=== PATIENT | female | born 1940 | race Caucasian/White ===

== ENCOUNTER 2022-01-19 02:33 | Outpatient (CLI) | payer MEDICARE, SELFPAY ==
[2022-01-19 11:00] LABS: HCT 43.1 % (36.0-46.0); HGB 14.5 g/dL (11.2-15.7); MCHC 33.6 % (32.0-36.0); MCV 92 fL (80-95); MPV 9.4 fL (8.0-11.0); Platelet Count 268 10^3/uL (130-400); RBC 4.67 10^6/uL (3.93-5.22); RDW 13.2 % (11.7-14.6); RDW-SD 44.5 fL; WBC 7.87 10^3/uL (4.4-10.8)
[2022-01-19 11:40] LABS: TSH 4.98 uIU/mL (0.36-3.74)
[2022-01-19 17:45] LABS: T3, Total 97 ng/dL (97-169)
== END 2022-01-19 02:34 | disposition home or self-care (01) ==
LOC: LBO 02:34
PROVIDERS: PCP Nurse Practitioner Family; Visit Provider Internal Medicine Endocrinology, Diabetes & Metabolism
DX: E05.00 Thyrotoxicosis with diffuse goiter without thyrotoxic crisis or storm (principal); Z51.81 Encounter for therapeutic drug level monitoring
CPT/HCPCS: 36415; 85027; 84439; 84443; 84480

== ENCOUNTER → 2022-03-26 00:24 | Outpatient (CLI) | payer MEDICARE, OTHER, SELFPAY ==
--- NOTE | 2022-03-26 | DI.DEXA_ITS ---
Exam(s) XR DEXA BONE DENSITY W/WO CORIE EXAM: XR DEXA BONE DENSITY W/WO CORIE CLINICAL HISTORY: POST MENOPAUSAL N95.9 HX GRAVES DISEASE TECHNIQUE: HoloThrill On C densitometer analysis of left hip, lumbar spine and left forearm. COMPARISON: No exams were available for comparison FINDINGS: Lateral view of the thoracic and lumbar spine shows some accentuation of the thoracic kyphosis but no definite compression fractures. Bone mineral density measurements of the lumbar spine correspond to a total T-score of -2.1, in the osteopenic range. Bone mineral density measurements of the left hip correspond to a total T-score of -2.8. The femora l neck T-score is -3.3, in the osteoporotic range.. The left forearm bone mineral density measurements correspond to a T-score of the distal 3rd of -3.8 , in the osteoporotic range.. 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
== END ==
PROVIDERS: PCP Nurse Practitioner Family; Visit Provider Internal Medicine Endocrinology, Diabetes & Metabolism
DX: N95.9 Unspecified menopausal and perimenopausal disorder (principal); Z13.820 Encounter for screening for osteoporosis; M81.0 Age-related osteoporosis without current pathological fracture; M85.89 Other specified disorders of bone density and structure, multiple sites
CPT/HCPCS: 77080

== ENCOUNTER 2022-08-26 04:10 | Outpatient (CLI) | payer MEDICARE, OTHER, SELFPAY ==
[2022-08-26 14:28] LABS: FREE T4 0.94 ng/dL (0.76-1.46); TSH 7.05 uIU/mL (0.36-3.74)
[2022-08-26 22:49] LABS: T3, Total 101 ng/dL (97-169)
== END 2022-08-26 04:11 | disposition home or self-care (01) ==
LOC: LBO 04:10
PROVIDERS: PCP Nurse Practitioner Family; Visit Provider Internal Medicine Endocrinology, Diabetes & Metabolism
DX: E05.00 Thyrotoxicosis with diffuse goiter without thyrotoxic crisis or storm (principal)
CPT/HCPCS: 36415; 84439; 84443; 84480

== ENCOUNTER 2022-12-29 05:48 | Outpatient (CLI) | payer MEDICARE, SELFPAY ==
[2022-12-29 15:50] LABS: FREE T4 1.24 ng/dL (0.76-1.46); TSH 3.15 uIU/mL (0.36-3.74)
[2022-12-29 22:19] LABS: T3, Total 91 ng/dL (97-169)
== END 2022-12-29 05:49 | disposition home or self-care (01) ==
LOC: LBO 05:48
PROVIDERS: PCP Nurse Practitioner Family; Visit Provider Internal Medicine Endocrinology, Diabetes & Metabolism
DX: E05.00 Thyrotoxicosis with diffuse goiter without thyrotoxic crisis or storm (principal)
CPT/HCPCS: 36415; 84439; 84443; 84480

== ENCOUNTER 2023-04-19 02:49 | Outpatient (CLI) | payer MEDICARE, SELFPAY ==
[2023-04-19 12:35] LABS: HCT 43.2 % (36.0-46.0); MCH 32.1 pg (27.0-33.0); MCHC 34.7 % (32.0-36.0); MCV 93 fL (80-95); MPV 9.4 fL (8.0-11.0); Platelet Count 273 10^3/uL (130-400); RBC 4.67 10^6/uL (3.93-5.22); RDW 12.6 % (11.7-14.6); WBC 8.64 10^3/uL (4.4-10.8)
[2023-04-19 13:16] LABS: ALT 16 U/L (14-59); AST 19 U/L (15-37); Albumin 3.9 g/dL (3.4-5.0); Alkaline Phosphatase 87 U/L (46-116); BUN 13 mg/dL (7-18); Bilirubin, Total 0.7 mg/dL (0.2-1.0); CREATININE 0.9 mg/dL (0.55-1.02); Calcium 10.1 mg/dL (8.5-10.1); Chloride 93 mmol/L (98-107); Estimated GFR 63.43 (mL/min/1.73m2); FREE T4 1.11 ng/dL (0.76-1.46); Glucose 95 mg/dL (74-106); Potassium 4.6 mmol/L (3.5-5.1); Sodium 128 mmol/L (136-145); TSH 6.19 uIU/mL (0.36-3.74); Total Protein 7.6 g/dL (6.4-8.2)
[2023-04-20 18:10] LABS: T3, Total 95 ng/dL (97-169)
[2023-04-20 19:04] LABS: Osmolality Serum 265 mOsm/kg (275-295)
[2023-04-20 20:04] LABS: Parathyroid Hormone,Intact 20 pg/mL (19-88)
[2023-04-21 17:07] LABS: Beta-CrossLaps (B-CTx) 547 pg/mL
[2023-04-25 16:51] LABS: 25-Hydroxy D Total 51 ng/mL; 25-Hydroxy D2 <4.0 ng/mL; 25-Hydroxy D3 51 ng/mL
== END 2023-04-19 02:50 | disposition home or self-care (01) ==
LOC: LBO 02:49
PROVIDERS: PCP Nurse Practitioner Family; Visit Provider Internal Medicine Endocrinology, Diabetes & Metabolism
DX: E05.00 Thyrotoxicosis with diffuse goiter without thyrotoxic crisis or storm (principal); E87.1 Hypo-osmolality and hyponatremia; M81.0 Age-related osteoporosis without current pathological fracture; Z79.899 Other long term (current) drug therapy; Z51.81 Encounter for therapeutic drug level monitoring
CPT/HCPCS: 36415; 80053; 82306; 82523; 85027; 83930; 83970; 84100; 84439; 84443; 84480

== ENCOUNTER 2023-09-13 04:46 | Outpatient (CLI) | payer MEDICARE, SELFPAY ==
[2023-09-13 12:47] LABS: Anion Gap 8.9 mmol/L (3-11); BUN 11 mg/dL (7-18); CO2 26.1 mmol/L (21.0-32.0); CREATININE 0.9 mg/dL (0.55-1.02); Calcium 9.5 mg/dL (8.5-10.1); Chloride 98 mmol/L (98-107); Estimated GFR 63.43 (mL/min/1.73m2); FREE T4 1.33 ng/dL (0.76-1.46); Glucose 89 mg/dL (74-106); Potassium 4.4 mmol/L (3.5-5.1); Sodium 133 mmol/L (136-145); TSH 1.32 uIU/mL (0.36-3.74)
[2023-09-13 18:54] LABS: T3, Total 120 ng/dL (97-169)
== END 2023-09-13 04:47 | disposition home or self-care (01) ==
PROVIDERS: PCP Nurse Practitioner Family; Visit Provider Internal Medicine Endocrinology, Diabetes & Metabolism
DX: E05.00 Thyrotoxicosis with diffuse goiter without thyrotoxic crisis or storm (principal); E87.1 Hypo-osmolality and hyponatremia
CPT/HCPCS: 36415; 80048; 84439; 84443; 84480

== ENCOUNTER 2023-12-12 05:16 | Outpatient (CLI) | payer MEDICARE, SELFPAY ==
[2023-12-12 13:13] LABS: FREE T4 1.39 ng/dL (0.76-1.46); TSH 0.06 uIU/Ml (0.36-3.74)
[2023-12-12 17:55] LABS: T3, Total 140 ng/dL (97-169)
== END 2023-12-12 05:17 | disposition home or self-care (01) ==
PROVIDERS: PCP Nurse Practitioner Family; Visit Provider Internal Medicine Endocrinology, Diabetes & Metabolism
DX: E05.00 Thyrotoxicosis with diffuse goiter without thyrotoxic crisis or storm (principal); E87.1 Hypo-osmolality and hyponatremia; M81.0 Age-related osteoporosis without current pathological fracture; Z51.81 Encounter for therapeutic drug level monitoring
CPT/HCPCS: 36415; 84439; 84443; 84480

== ENCOUNTER 2024-04-13 01:22 | Outpatient (CLI) | payer MEDICARE, SELFPAY ==
[2024-04-13 12:20] LABS: HGB 13.8 g/dL (11.2-15.7); MCH 30.8 pg (27.0-33.0); MCHC 33.7 % (32.0-36.0); MCV 92 fL (80-95); MPV 10.1 fL (8.0-11.0); Platelet Count 294 10^3/uL (130-400); RBC 4.48 10^6/uL (3.93-5.22); RDW 12.6 % (11.7-14.6); RDW-SD 42.5 fL
[2024-04-13 12:40] LABS: FREE T4 1.27 ng/dL (0.76-1.46); TSH 0.08 uIU/Ml (0.36-3.74)
[2024-04-13 12:48] LABS: ALT 17 U/L (14-59); AST 20 U/L (15-37); Albumin 3.8 g/dL (3.4-5.0); Alkaline Phosphatase 96 U/L (46-116); Anion Gap 6.3 mmol/L (3-11); BUN 10 mg/dL (7-18); Bilirubin, Total 0.74 mg/dL (0.2-1.0); CO2 26.7 mmol/L (21.0-32.0); CREATININE 0.9 mg/dL (0.55-1.02); Calcium 9.5 mg/dL (8.5-10.1); Chloride 95 mmol/L (98-107); Estimated GFR 63.04 (mL/min/1.73m2); Glucose 104 mg/dL (74-106); PHOSPHORUS 3.6 mg/dL (2.6-4.7); Potassium 4.5 mmol/L (3.5-5.1); Sodium 128 mmol/L (136-145)
[2024-04-13 19:14] LABS: T3, Total 115 ng/dL (97-169)
[2024-04-13 19:18] LABS: Osmolality Serum 268 mOsm/kg (275-295)
[2024-04-16 18:48] LABS: Beta-CrossLaps (B-CTx) 700 pg/mL
[2024-04-19 09:14] LABS: 25-Hydroxy D Total 51 ng/mL; 25-Hydroxy D2 <4.0 ng/mL; 25-Hydroxy D3 51 ng/mL
== END 2024-04-13 01:23 | disposition home or self-care (01) ==
LOC: LOS 01:22
PROVIDERS: PCP Nurse Practitioner Family; Visit Provider Internal Medicine Endocrinology, Diabetes & Metabolism
DX: M81.0 Age-related osteoporosis without current pathological fracture (principal); E05.00 Thyrotoxicosis with diffuse goiter without thyrotoxic crisis or storm; E87.1 Hypo-osmolality and hyponatremia; Z51.81 Encounter for therapeutic drug level monitoring
CPT/HCPCS: 36415; 80053; 82306; 82523; 85027; 83930; 84100; 84439; 84443; 84480

== ENCOUNTER 2024-09-14 01:22 | Outpatient (CLI) | payer MEDICARE, SELFPAY ==
[2024-09-14 13:05] LABS: Anion Gap 6.2 mmol/L (3-11); BUN 10 mg/dL (7-18); CO2 27.8 mmol/L (21.0-32.0); CREATININE 0.9 mg/dL (0.55-1.02); Calcium 9.4 mg/dL (8.5-10.1); Chloride 99 mmol/L (98-107); Estimated GFR 63.04 (mL/min/1.73m2); Glucose 93 mg/dL (74-106); Potassium 4.2 mmol/L (3.5-5.1); Sodium 133 mmol/L (136-145); TSH 0.36 uIU/mL (0.36-3.74)
[2024-09-14 13:21] LABS: FREE T4 1.29 ng/dL (0.76-1.46)
[2024-09-14 18:19] LABS: T3, Total 122 ng/dL (97-169)
== END 2024-09-14 01:23 | disposition home or self-care (01) ==
LOC: LOS 01:22
PROVIDERS: PCP Nurse Practitioner Family; Visit Provider Internal Medicine Endocrinology, Diabetes & Metabolism
DX: E05.00 Thyrotoxicosis with diffuse goiter without thyrotoxic crisis or storm (principal)
CPT/HCPCS: 36415; 80048; 84439; 84443; 84480

== ENCOUNTER 2024-12-27 03:39 | Outpatient (CLI) | payer MEDICARE, SELFPAY ==
[2024-12-27 12:53] LABS: Anion Gap 7.1 mmol/L (3-11); BUN 17 mg/dL (7-18); CO2 26.9 mmol/L (21.0-32.0); CREATININE 0.9 mg/dL (0.55-1.02); Calcium 9.5 mg/dL (8.5-10.1); Chloride 98 mmol/L (98-107); Estimated GFR 62.65 (mL/min/1.73m2); FREE T4 0.97 ng/dL (0.76-1.46); Glucose 100 mg/dL (74-106); Potassium 4.7 mmol/L (3.5-5.1); Sodium 132 mmol/L (136-145); TSH 1.16 uIU/mL (0.36-3.74)
[2024-12-27 18:14] LABS: T3, Total 115 ng/dL (97-169)
== END 2024-12-27 03:40 | disposition home or self-care (01) ==
LOC: LOS 03:39
PROVIDERS: PCP Nurse Practitioner Family; Visit Provider Internal Medicine Endocrinology, Diabetes & Metabolism
DX: E05.00 Thyrotoxicosis with diffuse goiter without thyrotoxic crisis or storm (principal); M81.0 Age-related osteoporosis without current pathological fracture; E87.1 Hypo-osmolality and hyponatremia; R53.83 Other fatigue; N95.1 Menopausal and female climacteric states
CPT/HCPCS: 36415; 80048; 84439; 84443; 84480

== ENCOUNTER 2025-04-16 08:16 | Outpatient (CLI) | payer MEDICARE, SELFPAY ==
[2025-04-16 13:54] LABS: HCT 41.4 % (36.0-46.0); HGB 13.8 g/dL (11.2-15.7); MCH 31.4 pg (27.0-33.0); MCHC 33.3 % (32.0-36.0); MCV 94 fL (80-95); MPV 9.8 fL (8.0-11.0); Platelet Count 271 10^3/uL (130-400); RBC 4.40 10^6/uL (3.93-5.22); RDW 12.7 % (11.7-14.6); RDW-SD 44.1 fL; WBC 8.21 10^3/uL (4.4-10.8)
[2025-04-16 14:11] LABS: ALT 18 U/L (14-59); AST 19 U/L (15-37); Albumin 3.7 g/dL (3.4-5.0); Alkaline Phosphatase 102 U/L (46-116); Anion Gap 6.6 mmol/L (3-11); BUN 7 mg/dL (7-18); Bilirubin, Total 0.9 mg/dL (0.2-1.0); CO2 28.4 mmol/L (21.0-32.0); Calcium 9.1 mg/dL (8.5-10.1); Chloride 98 mmol/L (98-107); Estimated GFR 62.65 (mL/min/1.73m2); Glucose 92 mg/dL (74-106); Potassium 4.3 mmol/L (3.5-5.1); Sodium 133 mmol/L (136-145); TSH 2.29 uIU/mL (0.36-3.74); Total Protein 7.0 g/dL (6.4-8.2)
[2025-04-16 23:20] LABS: T3, Total 113 ng/dL (97-169)
[2025-04-18 09:42] LABS: Beta-CrossLaps (B-CTx) 743 pg/mL
== END 2025-04-16 08:17 | disposition home or self-care (01) ==
LOC: LOS 08:16
PROVIDERS: PCP Nurse Practitioner Family; Visit Provider Internal Medicine Endocrinology, Diabetes & Metabolism
DX: E05.00 Thyrotoxicosis with diffuse goiter without thyrotoxic crisis or storm (principal)
CPT/HCPCS: 36415; 80053; 82523; 85027; 83930; 84439; 84443; 84480